=== PATIENT | female | born 1960 | race Caucasian/White ===

== ENCOUNTER 2017-07-01 17:19 | Emergency (ER) | payer OTHER ==
[~2017-07-01] VITALS: Ht 157.5 cm; Wt 63.0 kg
[~2017-07-01 17:19] MED LIST: AZIT250T94 PO; CYCL-319 PO; IBUP800T25 PO; LEVO88TA PO; NAPR-260 PO
[2017-07-01 17:21] VITALS: Ht 157.5 cm; Wt 63.0 kg
--- NOTE | 2017-07-01 20:47 | RADRPT ---
PROCEDURE: US left orbit. CLINICAL INDICATION: Left visual disturbance. TECHNIQUE: High-resolution sonography of the left orbit was performed in the axial and sagittal pl anes. COMPARISON: None. FINDINGS: The anterior chamber is grossly normal. There are ill-defined abnormal echoes posteriorly in the po sterior chamber which may indicate retinal detachment. IMPRESSION: 1. Possible retinal detachment of the left globe. Since the diagnosis is uncertain, correlation wi MRI or CT scan is advised. Call report: A call report of the findings was made to Silverio Munroe on 07/01/2017 at 2040 ho urs. RPTAT: QQ .Raymon Bradley MD, MD Date Time Electronically viewed and signed by .Raymon Bradley MD, MD on 07/01/2017 20:47 .R/
--- NOTE | 2017-07-01 21:05 | RADRPT ---
PROCEDURE: CT Brain without contrast. CLINICAL INDICATION: Headache. TECHNIQUE: A CT of the brain was performed utilizing axial sections from the skull base through th e vertex without contrast. Images were reviewed on a high-resolution PACS workstation. CTDIvol: 43.6 8 mGy. DLP: 720.23 mGy-cm. One or more of the following dose reduction techniques were used: - Automated exposure control. - Adjustment of the mA and/or kV according to patient size. - Use of iterative reconstruction technique. COMPARISON: None available FINDINGS: The sulci are normal size for the patient's age. No hydrocephalus is seen. There is no mass effect. No acute intracranial hemorrhage is identified. There is no extra-axial collection. Lara-white reema er differentiation is preserved. There is no significant mucosal disease in the paranasal sinuses. The visualized mastoid air cells are clear. The ossesous structures are unremarkable. The extracranial soft tissues are unremarkable. IMPRESSION: 1. No acute intracranial pathology. RPTAT: HTAR .Carlos Erazo MD, MD Date Time Electronically viewed and signed by .Carlos Erazo MD, on 07/01/2017 21:04 .R/
--- NOTE | 2017-07-01 21:09 | RADRPT ---
PROCEDURE: CT scan facial bones CLINICAL INDICATION: Pain. TECHNIQUE: A CT of the facial bones was performed without intravenous contrast. Coronal and sagitt al reformats were generated. CTDIvol: 29.39 mGy. DLP: 498.73 mGy-cm. One or more of the following dose reduction techniques were used: - Automated exposure control. - Adjustment of the mA and/or kV according to patient size. - Use of iterative reconstruction technique. COMPARISON: Ultrasound of the left orbit dated 07/01/2017. FINDINGS: The soft tissues of the face are unremarkable. There is no facial fracture. The bilateral globes a re normal noncontrast CT appearance. The other bilateral intraorbital structures are also unremarka ble. The paranasal sinuses and nasal cavity are clear. The visualized intracranial soft tissues ar e within normal limits. IMPRESSION: 1. Normal noncontrast CT appearance of the intraorbital structures. In particular, no abnormality i s identified within the left globe. Given the abnormal finding seen in the left globe on the accomp anying ultrasound, an ophthalmology consult should still be obtained. RPTAT: HTAR .Carlos Erazo MD, Date Time Electronically viewed and signed by .Carlos Erazo MD, on 07/01/2017 21:09 .R/
[2017-07-01 21:49] VITALS: BP 115/67; PULSE 70; RESP 14; TEMP 98.2
--- NOTE | 2017-07-01 23:04 | ERD ---
ER Documentation Chief Complaint Date/Time DATE: 07/01/17 TIME: 23:00 Chief Complaint LEFT EYE PROBLEM; SEEING AURA HPI .Patient is a 56-year-old female with a past medical history of hypothyroidism , rotator cuff injury who presents to the ED with sudden onset of visual discomfort. She says in her left eye since last night she has been seen white streaks and strings that come and go. She states that the fluid in her left eye feels different. She does have a history of one floater in her right eye. She denies halos. She denies pain or visual disturbances. She has not followed up with an hide and skin colerer regarding this issue. She denies fevers. Denies abdominal pain, nausea, vomiting or diarrhea ROS All systems reviewed and are negative except as per history of present illness. Medications Home Meds Active Scripts Naproxen* (Naprosyn*) 500 Mg Tablet, 500 MG PO BID Y for PAIN AND/OR INFLAMMATION, #30 TAB Prov:BULL JACOBS PA-C 09/02/16 Cyclobenzaprine Hcl* (Cyclobenzaprine Hcl*) 10 Mg Tablet, 10 MG PO QHS, #15 TAB Prov:BULL JACOBS PA-C 09/02/16 Azithromycin* (Zithromax*) 250 Mg Tablet, 250 MG PO .ZPACK DIRECTED, #6 TAB TAKE 500 MG (2 TABS) THE FIRST DAY THEN 250 MG (1 TAB) DAYS 2-5 Prov:OSEI LOWRY DO 12/11/15 Ibuprofen* (Motrin*) 800 Mg Tab, 800 MG PO Q6H Y for PAIN AND OR ELEVATED TEMP, #30 TAB Prov:OSEI LOWRY DO 12/11/15 Reported Medications Levothyroxine Sodium* (Synthroid*) 88 Mcg Tablet, 88 MCG PO DAILY 01/23/12 Allergies Allergies: Coded Allergies: No Known Drug Allergies (Verified Allergy, Unknown, 09/02/16) PMhx/Soc History of Surgery: Yes (left arm surgery) Anesthesia Reaction: No Hx Neurological Disorder: No Hx Respiratory Disorders: No Hx Cardiac Disorders: No Hx Psychiatric Problems: No Hx Miscellaneous Medical Probl: Yes (hypothyroidism) Hx Alcohol Use: Yes Hx Substance Use: No Hx Tobacco Use: No Smoking Status: Never smoker FmHx Family History: No coronary disease, No diabetes, No other Physical Exam Vitals Vital Signs Date Time Temp Pulse Resp B/P Pulse Ox O2 Delivery O2 Flow Rate FiO2 07/01/17 21:49 98.2 70 14 115/67 99 Room Air 07/01/17 17:21 98.7 89 16 127/77 98 Physical Exam GENERAL: Well-developed, well-nourished female. Appears in no acute distress. HEAD: Normocephalic, atraumatic. EYES: Pupils are equally reactive bilaterally. EOMs grossly intact. No conjunctival erythema. No pain with EOMs. No erythema. No proptosis. ENT: Moist mucous membranes. No uvula deviation. No kissing tonsils. No exudates. NECK: Supple. No lymphadenopathy or thyromegaly. No meningismus. negative kernig. negative brudinski. LUNG: Clear to auscultation bilaterally. No rhonchi, wheezing, rales or coarse breath sounds. HEART: Regular rate and rhythm. No murmurs, rubs or gallops. ABDOMEN: No scars, ecchymosis or rashes noted. Soft, nontender, and nondistended. Positive bowel sounds in all four quadrants. No rebound tenderness , no guarding. (-) McBurneys point tenderness. No CVA tenderness. BACK: No midline tenderness. Extremities: Equal pulses bilaterally. No peripheral clubbing, cyanosis or edema. No unilateral leg swelling. NEUROLOGIC: Alert and oriented. Moving all four extremities. 5/5 strength in all extremities. Normal speech. Steady gait. SKIN: Normal color. Warm and dry. No rashes or lesions. Capillary refill < 2 seconds Procedures/MDM ER COURSE: I kept the patient and/or family informed of laboratory and diagnostic imaging results throughout the emergency room course. MEDICAL DECISION MAKING: This is a 56-year-old female who presents with left eye changes 1 day. Vital signs were reviewed. Patient is afebrile. Patient is not hypoxic. She is not toxic or ill-appearing. Patient's ED visual acuity was within normal limits, bilateral 20/15 with unilateral in the right and left 20/25. I consulted with my supervising physician Dr. Nunez who agrees with my medical decision making and discharge plans. A CT brain and ultrasound I were done in the ED. I spoke with Dr. Bradley regarding the ultrasound and patient has possible retinal attachment. CT scan was within normal limits. Patient could be treated outpatient Wally and to follow-up with hide and skin colerer first thing tomorrow morning. Low suspicion for acute angle closure glaucoma, retinal detachment, arterial occlusion, hemorrhage, fracture, foreign body, ruptured globe, orbital cellulitis DISCHARGE: At this time, patient is stable for discharge and outpatient management with no new complaints during the ER course. Patient was sent home with copy of all imaging report and CD and to follow-up with [facility] tomorrow. All of this was explained to patient who understood plan.. Patient will be discharged home with instructions to recheck for new or worsening symptoms such as fever, nausea, weakness, LOC and to follow up with primary care in the next 1 -2 days. Patient was advised to return to the ER for any new or worsening symptoms. Plan was discussed and patient and/or family understands and agrees. Home instructions were given. Departure Diagnosis: Primary Impression: Vision changes Condition: Stable Patient Instructions: Retinal Detachment Referrals: [facility] Hours: Mon - Fri 9:00 AM - 5:00 PM Additional Instructions: Call your primary care doctor TOMORROW for an appointment during the next 1-2 days.See the doctor sooner or return here if your condition worsens before your appointment time. SUZETTE MANSFIELD PA-C Jul 01, 2017 23:04
== END 2017-07-01 21:48 | disposition home or self-care (01) ==
LOC: FTE 17:19
DX: H57.8 Other specified disorders of eye and adnexa (principal); E03.9 Hypothyroidism, unspecified; R51 Headache
CPT/HCPCS: 70450; 70486; 76536; Z7502

== ENCOUNTER 2019-02-04 18:13 | Emergency (ER) | payer OTHER ==
[~2019-02-04] VITALS: Ht 170.2 cm; Wt 69.2 kg
[~2019-02-04 18:13] MED LIST changes: +AZIT250T PO; -AZIT250T94 PO; -CYCL-319 PO; +CYCL10TA7 PO; -IBUP800T25 PO; +IBUP800T48 PO; -NAPR-260 PO; +NAPR-985 PO
[2019-02-04 18:22] VITALS: Ht 170.2 cm; Wt 69.2 kg
[2019-02-04] MEDS ORDERED: TRAM50TA2 PO (22:28)
--- NOTE | 2019-02-04 22:35 | ERD ---
ER Documentation Chief Complaint Chief Complaint left jaw/neck pain; left body pain x's 3 months HPI 58-year-old female presents left jaw pain times 3 months. She states that the pain is beginning to be worse lately. She has a history of hypothyroidism. The pain is noted to be 10 out of 10 intermittently. She states that she is unable to open her jaw fully. She does have a history of TMJ. Denies fevers or chills. Denies recent infection. She has taken Tylenol and Motrin at home without relief. ROS All systems reviewed and are negative except as per history of present illness. Medications Home Meds Active Scripts Tramadol HCl (Tramadol HCl) 50 Mg Tablet, 50 MG PO Q6H PRN for PAIN, #20 TAB Prov:MARIAH EDWARDS DO 02/04/19 Naproxen* (Naprosyn*) 500 Mg Tablet, 500 MG PO BID PRN for PAIN AND/OR INFLAMMATION, #30 TAB Prov:BULL JACOBS PA-C 09/02/16 Cyclobenzaprine Hcl* (Cyclobenzaprine Hcl*) 10 Mg Tablet, 10 MG PO QHS, #15 TAB Prov:BULL JACOBS PA-C 09/02/16 Azithromycin* (Zithromax*) 250 Mg Tablet, 250 MG PO .ZPACK DIRECTED, #6 TAB TAKE 500 MG (2 TABS) THE FIRST DAY THEN 250 MG (1 TAB) DAYS 2-5 Prov:OSEI LOWRY DO 12/11/15 Ibuprofen* (Motrin*) 800 Mg Tab, 800 MG PO Q6H PRN for PAIN AND OR ELEVATED TEMP, #30 TAB Prov:OSEI LOWRY DO 12/11/15 Reported Medications Levothyroxine Sodium* (Synthroid*) 88 Mcg Tablet, 88 MCG PO DAILY 01/23/12 Allergies Allergies: Coded Allergies: No Known Drug Allergies (Verified Allergy, Unknown, 09/02/16) PMhx/Soc History of Surgery: Yes (left arm surgery) Anesthesia Reaction: No Hx Neurological Disorder: No Hx Respiratory Disorders: No Hx Cardiac Disorders: No Hx Psychiatric Problems: No Hx Miscellaneous Medical Probl: Yes (hypothyroidism, TMJ) Hx Alcohol Use: Yes (OCCASIONAL) Hx Substance Use: No Hx Tobacco Use: No Smoking Status: Never smoker Physical Exam Vitals Vital Signs Date Temp Pulse Resp B/P (MAP) Pulse Ox O2 O2 Flow FiO2 Time Delivery Rate 02/04/19 97.8 78 20 163/89 97 18:22 (113) Physical Exam Const: No acute distress Head: Atraumatic, left jaw TMJ area tenderness palpation, there is mild cre pitus noted over the left TMJ area Eyes: Normal Conjunctiva ENT: Normal External Ears, Nose and Mouth. Neck: Full range of motion. No meningismus. Resp: Clear to auscultation bilaterally Cardio: Regular rate and rhythm, no murmurs Abd: Soft, non tender, non distended. Normal bowel sounds Skin: No petechiae or rashes Back: No midline or flank tenderness Ext: No cyanosis, or edema Neur: Awake and alert Psych: Normal Mood and Affect Procedures/MDM Medical Decision Making: Differential diagnosis includes but not limited to TMJ dysfunction, fracture, ligamentous sprain, dislocation Patient appeared well on physical exam. ED course: Facial x-ray was unremarkable. There was no acute fracture, no soft tissue injury, no dislocation noted. Patient possibly has an exacerbation of her TMJ dysfunction Prescription(s): Patient given prescription for tramadol. Patient advised to follow up with PCP in 1-2 days. Patient advised to return to ED for new or worsening symptoms. Patient stable on discharge from the ED. Disclaimer: Inadvertent spelling and grammatical errors are likely due to EHR/dictation software use and do not reflect on the overall quality of patient care. Also, please note that the electronic time recorded on this note does not necessarily reflect the actual time of the patient encounter. Departure Diagnosis: Primary Impression: Jaw pain Condition: Fair Patient Instructions: Tmj Syndrome Additional Instructions: Call your primary care doctor TOMORROW for an appointment during the next 1-2 days.See the doctor sooner or return here if your condition worsens before your appointment time. MARIAH EDWARDS DO Feb 04, 2019 22:35
[2019-02-04 22:40] VITALS: BP 149/77; PULSE 71; RESP 20
== END 2019-02-04 22:41 | disposition home or self-care (01) ==
LOC: FTE 18:13
DX: R68.84 Jaw pain (principal); E03.9 Hypothyroidism, unspecified
CPT/HCPCS: 70140; Z7502